=== PATIENT | male | born 1965 | race Caucasian/White ===

== ENCOUNTER 2023-05-24 08:22 | Emergency (ER) | payer BC, SELFPAY ==
[2023-05-24 08:27] VITALS: BP 155/95
--- NOTE | 2023-05-24 09:28 | ED.GENMED ---
History of Present Illness
General
Chief Complaint: Allergic Reaction
Source: patient
Exam Limitations: none
Time Seen by Provider: 05/24/23 08:53
Nursing documentation reviewed up to this point in time: agreed with
Travel History
Have you had any contact with someone who has COVID-19?: No
Do you have any symptoms of coronavirus? Fever > 100 degrees, chills, cough, shortness of breath, sore throat, loss of taste or smell, muscle aches, or headache?: No
History of Present Illness
History of Present Illness:
Patient with history of is on the pain diabetes and hypertension, presents to ED secondary to generalized itching sensation, along with bilateral ear, lower lip, and jaw swelling, which woke the patient up from sleep at 2 AM. Denies headache.
Denies dizziness. Denies chest pain or shortness of breath. Denies nausea or vomiting. Denies throat swelling sensation. Patient proceeded to take 50 mg of Benadryl shortly afterwards, with gradual improvement symptoms. At the time of
evaluation ED, patient reporting mild sensation of swelling in his ear and lip. Denies previous history of similar symptoms. Patient has taken lisinopril for hypertension for long period time.
Past History
Past History
ED Past Medical History: CAD, HTN, Hypercholesterolemia, IDDM, Psychiatric (Bipolar disorder) and Other (Sleep apnea)
ED Past Surgical History: Cardiac (CABG, Stents X3) and Other (Hernia repair)
Social History
Tobacco: Non-smoker
Alcohol: None
Drug: None
Personal:
Living: with family
Employment: Employed
Review of Systems
Review of Systems
Allergies reviewed?: Yes
All Other Systems: ROS reviewed and negative except as documented in HPI and ROS
Constitutional: Reports no symptoms; Denies fever
EENT: Reports other (ear swelling)
Respiratory: Reports no symptoms; Denies cough or trouble breathing
Cardiac: Denies chest pain
ABD/GI: Denies nausea or vomiting
Musculoskeletal: Reports no symptoms
Skin: Reports itching and rash
Neurological: Reports no symptoms; Denies dizzy, headache or weakness
Phy Exam
Physical Exam
Physical Exam:
Physical Exam
General: mild distress, not acutely ill. afebrile
Head: nc/at. eomi
Neck: supple. no meningeal signs. normal uvula. posterior pharynx well-visualized.
Heart: s1/s2 regular rate and rhythm, no murmur. equal radial pulses.
Lungs: no acute respiratory distress. clear bilaterally
Abdomen: normal bowel sounds. not tender.
Neuro: alert and oriented. no focal neurological deficits
Skin: mild b/l earlobe swelling. hives noted over anterior chest wall. no lip swelling
Psychiatric: well kept. interactive and cooperative
Extremities: no edema. no calf tenderness
Course
Orders/Labs/Results
Orders:
Orders
05/24/23 08:32
EKG [Electrocardiogram (*1)] Urgent
Reason for Study: Chest Pain
EKG- Treatment ONCE
05/24/23 09:24
Famotidine [Pepcid] 20 mg PO NOW STA
Prednisone [Deltasone] 50 mg PO NOW STA
Vital Signs
Initial and Last Documented VS:
Initial Vital Signs
Temp Pulse Resp BP Pulse Ox
98 F 120 18 155/95 94
05/24/23 08:27 05/24/23 08:27 05/24/23 08:27 05/24/23 08:27 05/24/23 08:27
Last Documented Vital Signs
Temp Pulse Resp BP Pulse Ox
98 F 105 33 145/95 94
05/24/23 08:27 05/24/23 10:15 05/24/23 10:15 05/24/23 10:00 05/24/23 08:27
MDM/Problems Addressed
MDM/Problems Addressed:
Patient with continual gradual improvement symptoms during observation in ED. Patient with an allergic reaction(? lisinopril), as there no other new medications/food/environmental exposure. As such, after discussion, decision made to discontinue
use of lisinopril, with recommendation to discuss with his primary care physician upon discharge about starting new antihypertensive medication. Otherwise patient is afebrile, he medically stable, and is without any acute distress at time of
discharge. Patient will be given prescription for EpiPen, as well as 2 additional doses of prednisone, to be taken over the next 2 days, along with Benadryl at home as needed for itching.
*Critical Care Note
Total Time (30-74mins, 75-104mins- exclusive of procedures): Not Applicable
ED Attending Note
-
Portions of this chart may have been created with voice recognition software.� Occasional wrong word or��sound alike� substitutions may have occurred due to the inherent limitations of voice recognition software.
Discharge Plan
Departure
Patient Disposition: Home (Routine Discharge)
Date of Disposition: 05/24/23
Time of Disposition: 10:18
Patient with high blood pressure during this ER visit?: Yes
Condition: Good
Discharge Problem:
Allergic reaction
Instructions: Allergic Reaction ED
Prescriptions:
New
prednisone 50 mg tablet
50 mg PO DAILY Qty: 2 0RF
epinephrine [EpiPen 2-Saeed] 0.3 mg/0.3 mL auto-injector
0.3 mg IM ONCE Qty: 2 0RF
No Action
latanoprost 0.005 % Drops
1 drp BOTH EYES HS
atorvastatin 20 mg Tablet
20 mg PO HS
Theragen Tablet
1 tab PO DAILY
amlodipine 10 mg Tablet
10 mg PO HS
oxcarbazepine 600 mg Tablet
600 mg PO DAILY
lisinopril 40 mg Tablet
40 mg PO DAILY
prazosin 2 mg Capsule
2 mg PO HS
insulin aspart U-100 [Novolog FlexPen U-100 Insulin] 100 unit/mL (3 mL) Insulin Pen
17 - 22 sliding scale dose SC DIRECTED
Patient Comments:
05/24/2023, pt. states that his sliding scale is 17-22 units but does not know the break down of that sliding scale. He uses this med. before meals.
insulin glargine [Lantus Solostar U-100 Insulin] 100 unit/mL (3 mL) Insulin Pen
25 unit SC BID
Ozempic 2 mg/dose (8 mg/3 mL) Pen Injector
2 mg SC TU@0800
metoprolol succinate 100 MG tablet extended release 24 hr
100 mg PO HS
Referrals:
Shahram Stoddard DO [Family Provider] -
Stand Alone Forms: Return to Work
Activity Restrictions/Additional Instructions:
As discussed, please discuss with your primary care physician about discontinuing lisinopril and starting new blood pressure medication. Your prescriptions have been sent electronically to [facility] pharmacy in [place].
Interventions
Interventions:
*Risk Screen - Suicide Last Done: 05/24/23 08:27
*General Assessment Last Done: 05/24/23 08:27
*Neglect/Abuse Screening Last Done: 05/24/23 08:27
ED- Fall Risk Assessment Last Done: 05/24/23 10:28
*ED COVID-19 Vaccine History Last Done: 05/24/23 10:28
*Nursing Disposition Last Done: 05/24/23 10:28
ED- Cardiac Assessment Last Done: 05/24/23 10:26
ED- Pulmonary Assessment Last Done: 05/24/23 10:26
ED-Skin Assessment Last Done: 05/24/23 10:26
Discharge Date and Time
Discharge Date/Time: 05/24/23 10:28
[2023-05-24] MEDS: DELTASONE 50 MG PO (09:30)
[2023-05-24] MEDS: PEPCID 20 MG PO (09:30)
[2023-05-24 09:32] VITALS: BP 154/91
[2023-05-24 10:00] VITALS: BP 145/95
== END 2023-05-24 10:28 | disposition home or self-care (01) ==
LOC: EMR 08:22
PROVIDERS: EMERGENCY PHYSICIAN Emergency Medicine; FAMILY PHYSICIAN Family Medicine
DX: T78.40XA Allergy, unspecified, initial encounter (principal); R22.0 Localized swelling, mass and lump, head; L29.9 Pruritus, unspecified; I10 Essential (primary) hypertension; E11.9 Type 2 diabetes mellitus without complications; I25.10 Atherosclerotic heart disease of native coronary artery without angina pectoris; G47.30 Sleep apnea, unspecified; F31.9 Bipolar disorder, unspecified; E78.00 Pure hypercholesterolemia, unspecified; F32.A Depression, unspecified; Z91.51 Personal history of suicidal behavior; Z79.899 Other long term (current) drug therapy; Z79.4 Long term (current) use of insulin; Z95.1 Presence of aortocoronary bypass graft; Z95.5 Presence of coronary angioplasty implant and graft
CPT/HCPCS: 99283; 93005

== ENCOUNTER 2023-06-05 23:20 | Emergency (ER) | payer BC, SELFPAY ==
[2023-06-05 23:28] VITALS: BP 85/60
[2023-06-05 23:41] VITALS: BP 116/75
--- NOTE | 2023-06-05 23:44 | ED.GENMED ---
History of Present Illness
General
Chief Complaint: Allergic Reaction
Source: patient
Exam Limitations: none
Time Seen by Provider: 06/05/23 23:26
Travel History
Have you had any contact with someone who has COVID-19?: No
Do you have any symptoms of coronavirus? Fever > 100 degrees, chills, cough, shortness of breath, sore throat, loss of taste or smell, muscle aches, or headache?: No
History of Present Illness
History of Present Illness:
This is a 57 year old male that comes in with c/o allergic reaction. States that 2 satdays ago he awoke with his ear swelling, Jaw was swollen with tongue and lip swelling. States that he was also itching. States that they thought it was his
Lisinopril so this was stopped States that he did 2 days of steroids and he was fine. Then tonight he got up to the BR and felt constipated. States that he also started to itch so he took Benadryl 50mg. Then his lower lip felt like it was swelling
so he came in. Denies any new soaps, lotions, detergents. States that he had chills, slight nausea and felt lightheaded. States that his chest felt a little tight Denies any fever, SOB, abd pain, vomiting, diarrhea, headache, urinary burning.
Past History
Past History
ED Past Medical History: CAD, HTN, Hypercholesterolemia, IDDM, Psychiatric (Bipolar disorder, Depression) and Other (Sleep apnea. Numbness and tingling, EF of 37%, )
ED Past Surgical History: Cardiac (CABG, Stents X3) and Other (Hernia repair, Septoplasty, Turbinectomy)
Social History
Tobacco: Non-smoker
Alcohol: None
Drug: None
Personal:
Living: alone
Employment: Employed
Review of Systems
Review of Systems
All Other Systems: ROS reviewed and negative except as documented in HPI and ROS
Constitutional: Reports chills; Denies fever
EENT: Reports other (Lower lip swelling)
Respiratory: Denies cough or trouble breathing
Cardiac: Reports chest pain (Tightness)
ABD/GI: Reports nausea; Denies abdominal pain, vomiting or diarrhea
: Reports no symptoms; Denies dysuria, frequency or urgency
Musculoskeletal: Reports no symptoms
Skin: Reports itching and rash
Neurological: Reports other (Lightheaded); Denies headache
Psychiatric: Reports no symptoms
Phy Exam
General Physical Exam
General Presentation: no apparent distress
General age: appears stated age
General Skin: warm and dry
General Habitus: normal
General Mental: alert
General Hydration: dry mucous membranes
ENT Exam
ENT Exam: TM's normal, pharynx normal, neck supple and other (Very slight lower lip swelling)
Eye Exam
Eye Exam: EOMI
Cardiovascular Exam
Cardiovascular Exam: regular rate/rhythm, no edema and normal peripheral pulses
Pulmonary Exam
Pulmonary Exam: lungs clear, no respiratory distress, no rales, chest non tender, no crackles, no rhonchi, no wheezing and no cough
Gastrointestinal Exam
Gastrointestinal Exam: normal bowel sounds, non tender, soft, no organomegaly, no pulsatile mass and non distended
Musculoskeletal Exam
Musculoskeletal Exam: full ROM and no edema
Skin Exam
Skin Exam: warm/dry, no petechia and other (Redness noted in the upper chest and back. hives note noted on the legs )
Psychiatric Exam
Psychiatric Exam: normal mood/affect
Course
Orders/Labs/Results
Orders:
Orders
06/05/23 23:36
Dexamethasone Sod Phosphate [Decadron] 20 mg IV NOW STA
Famotidine [Pepcid] 20 mg IV NOW STA
06/05/23 23:46
Electrocardiogram (*1) Urgent
Reason for Study: Chest Pain
EKG- Treatment ONCE
06/05/23 23:49
Complete Blood Count/With Diff Urgent
Comprehensive Metabolic Panel Urgent
Troponin I Urgent
06/06/23 00:04
Diphenhydramine [Benadryl] 25 mg IV NOW STA
Diphenhydramine [Benadryl] 50 mg .ROUTE .STK-MED ONE
Ondansetron Injectable [Zofran] 8 mg .ROUTE .STK-MED ONE
Ondansetron Injectable [Zofran] 8 mg IV NOW STA
Abnormal Lab Results
06/05/23
23:49
WBC 14.9 H 10^3/uL
(4.8-10.8)
MPV 12.1 H fL
(7.4-10.4)
Abs Immat Gran (auto) 0.1 H 10^3/uL
(0-0.05)
Absolute Neuts (auto) 6.6 H 10^3/uL
(1.4-6.5)
Absolute Lymphs (auto) 6.8 H 10^3/uL
(1.2-3.4)
Absolute Monos (auto) 1.0 H 10^3/uL
(0.1-0.6)
Immature Gran % 0.7 H %
(0-0.5)
Sodium 131 L mmol/L
(135-145)
Potassium 3.4 L mmol/L
(3.5-5.1)
Chloride 92 L mmol/L
(98-107)
BUN 25 H mg/dl
(9-20)
Glucose 298 H mg/dl
(70-99)
06/05/23 23:49
06/05/23 23:49
Leukocytosis, Sodium slightly low. Chloride low. Dehydration. Glucose nonfasting. Troponin <0.012
Vital Signs
Initial and Last Documented VS:
Initial Vital Signs
Pulse Resp BP Pulse Ox
100 26 85/60 92
06/05/23 23:28 06/05/23 23:28 06/05/23 23:28 06/05/23 23:28
Last Documented Vital Signs
Temp Pulse Resp BP Pulse Ox
97.7 F 94 19 137/84 90
06/05/23 23:39 06/06/23 01:30 06/06/23 01:30 06/06/23 01:00 06/06/23 01:30
MDM/Problems Addressed
Differential Diagnosis Includes:
Allergic reaction.
MDM/Problems Addressed:
This is a 57 year old male that comes in with c/o allergic reaction. States that this happened about 2 weeks ago and they thought it was from the Lisinopril. States that tonight he got up to the BR and he felt like he was constipated. States that he
also started to itch so he took Benadryl 50mg po. States that he felt like his lip was swelling so he came in. States that he also had a little chest tightness.
Will check labs, and medicate with Steroids and Pepcid.
Back into see patient. Patient states that he is feeling much better. Rash appears to be gone. Patient is no longer red and is not scratching. Will have patient use Pepcid to help decrease the histamine release. Explained that the steroid will stay
in his system for a few days. Patient can also use Benadryl as needed to any itching. Patient to follow up with the family doctor. Return with any concerns.
Chronic conditions affecting care: CAD (EC 37%)
Acute Exacerbation and/or Progression of Chronic Illness:
NA
*Pulse Oximetry
Patient hypoxic: no
*EKG
Interpreted by ED Provider?: Yes
Heart Rate: 95
Rate: normal
Rhythm: sinus
[place]: left axis deviation
Interval: normal interval
QRS Pattern: right bundle branch block
Ischemia: no ischemia
*Market Research Manager Interpretation
Rate: normal
Heart Rate: 97
Rhythm: sinus
*Critical Care Note
Total Time (30-74mins, 75-104mins- exclusive of procedures): Not Applicable
ED Attending Note
-
Portions of this chart may have been created with voice recognition software.� Occasional wrong word or��sound alike� substitutions may have occurred due to the inherent limitations of voice recognition software.
Discharge Plan
Departure
Patient Disposition: Home (Routine Discharge)
Date of Disposition: 06/06/23
Time of Disposition: 01:36
Patient with high blood pressure during this ER visit?: No
Condition: Good
Covid-19: Not Applicable
Discharge Problem:
Allergic reaction
Instructions: Hives (DC)
Prescriptions:
No Action
latanoprost 0.005 % Drops
1 drp BOTH EYES HS
atorvastatin 20 mg Tablet
20 mg PO HS
Theragen Tablet
1 tab PO DAILY
amlodipine 10 mg Tablet
10 mg PO HS
oxcarbazepine 600 mg Tablet
600 mg PO DAILY
lisinopril 40 mg Tablet
40 mg PO DAILY
prazosin 2 mg Capsule
2 mg PO HS
insulin aspart U-100 [Novolog FlexPen U-100 Insulin] 100 unit/mL (3 mL) Insulin Pen
17 - 22 sliding scale dose SC DIRECTED
Patient Comments:
05/24/2023, pt. states that his sliding scale is 17-22 units but does not know the break down of that sliding scale. He uses this med. before meals.
insulin glargine [Lantus Solostar U-100 Insulin] 100 unit/mL (3 mL) Insulin Pen
25 unit SC BID
Ozempic 2 mg/dose (8 mg/3 mL) Pen Injector
2 mg SC TU@0800
metoprolol succinate 100 MG tablet extended release 24 hr
100 mg PO HS
prednisone 50 mg tablet
50 mg PO DAILY Qty: 2 0RF
epinephrine [EpiPen 2-Saeed] 0.3 mg/0.3 mL auto-injector
0.3 mg IM ONCE Qty: 2 0RF
Referrals:
Shahram Stoddard DO [Family Provider] - Call in 1-3 days for appt
Activity Restrictions/Additional Instructions:
As discussed, your blood work shows that our WBC are slightly elevated. This may be due to the steroid use. Your Sodium is slightly low and you are dehydration. Please increase your water intake to 8-8oz glasses daily. You may continue with Benadryl
50mg every 6 hours as needed for any itching. Please take Pepcid 20mg to help decrease the Histamine release. IF YOU HAVE ANY FURTHER ALLERGIC REACTION, SHORTNESS OF BREATH OR YOU HAVE ANY OTHER CONCERNS PLEASE RETURN TO THE EMERGENCY ROOM.
Interventions
Interventions:
ED- Cardiac Assessment Last Done: 06/06/23 00:17
ED- Pulmonary Assessment Last Done: 06/06/23 00:17
ED-Skin Assessment Last Done: 06/06/23 00:19
[2023-06-05] MEDS: DECADRON 20 MG IV (23:50)
[2023-06-05] MEDS: PEPCID 20 MG IV (23:51)
[2023-06-05 23:54] LABS: % Basophils 0.6 % (0-2); % Eosinophils 2.2 % (0-6); % Immature Granulocytes 0.7 % (0-0.5); % Lymphocytes 45.2 % (20.5-51.1); % Monocytes 6.9 % (1.7-9.3); % Neutrophils 44.4 % (42.2-75.2); Absolute Basophils 0.1 10^3/uL (0-0.2); Absolute Eosinophils 0.3 10^3/uL (0-0.7); Absolute Immature Granulocytes 0.1 10^3/uL (0-0.05); Absolute Lymphocytes 6.8 10^3/uL (1.2-3.4); Absolute Neutrophils 6.6 10^3/uL (1.4-6.5); Hematocrit 42.2 % (39.0-52.0); Hemoglobin 15.5 g/dL (13.0-18.0); Mean Corp Hgb Conc. 36.7 g/dL (33.0-37.0); Mean Corpuscular Hgb 29.7 pg (27.0-31.0); Mean Corpuscular Volume 80.8 fL (80.0-94.0); Mean Platelet Volume 12.1 fL (7.4-10.4); Nucleated Red Blood Cells % 0 % (-); Platelet Count 299 10^3/uL (130-400); Red Blood Cell Count 5.22 10^6/uL (4.70-6.10); Red Cell Dist. Width 14.2 % (11.5-14.5); White Blood Cell Count 14.9 10^3/uL (4.8-10.8)
[2023-06-06 00:06] LABS: ALT (SGPT) 25 U/L (0-50); AST (SGOT) 28 U/L (17-59); Albumin 4.1 g/dl (3.5-5.0); Alkaline Phosphatase 103 U/L (38-126); Blood Urea Nitrogen 25 mg/dl (9-20); Calcium 10.2 mg/dl (8.4-10.2); Carbon Dioxide 25 mmol/L (22-30); Chloride 92 mmol/L (98-107); Glucose 298 mg/dl (70-99); Potassium 3.4 mmol/L (3.5-5.1); Sodium 131 mmol/L (135-145); Total Bilirubin 1.1 mg/dl (0.2-1.3); Total Protein 6.7 g/dl (6.3-8.2); eGFR > 60.00
[2023-06-06] MEDS: BENADRYL 25 MG IV (00:07)
[2023-06-06] MEDS: ZOFRAN 8 MG IV (00:07)
[2023-06-06 00:18] LABS: Troponin I < 0.012 ng/ml
[2023-06-06 01:00] VITALS: BP 137/84
[2023-06-06 02:20] VITALS: BP 135/69
== END 2023-06-06 03:12 | disposition home or self-care (01) ==
LOC: EMR 23:20
PROVIDERS: Clinical Nurse Specialist Family Health; EMERGENCY PHYSICIAN Emergency Medicine; FAMILY PHYSICIAN Family Medicine
DX: T78.40XA Allergy, unspecified, initial encounter (principal); I25.10 Atherosclerotic heart disease of native coronary artery without angina pectoris; E86.0 Dehydration
CPT/HCPCS: 99284; 96374; 96375 ×3; 80053; 84484; 85025; 93005